=== PATIENT | male | born 2000 | race Caucasian/White ===

== ENCOUNTER 2022-03-01 16:24 | Emergency (ER) | payer MEDICAID, OTHER ==
[~2022-03-01] VITALS: Ht 182.9 cm; Wt 107.1 kg
[2022-03-01 17:15] VITALS: BP 134/77
[2022-03-01] MEDS ORDERED: CYCL-837 PO (18:42)
[2022-03-01] MEDS ORDERED: IBUP800T26 PO (18:42)
== END 2022-03-01 20:01 | disposition home or self-care (01) ==
LOC: ER 16:24
DX: S13.4XXA Sprain of ligaments of cervical spine, initial encounter (principal); G44.209 Tension-type headache, unspecified, not intractable; V43.52XA Car driver injured in collision with other type car in traffic accident, initial encounter; Y93.89 Activity, other specified; Y92.89 Other specified places as the place of occurrence of the external cause; Y99.8 Other external cause status